=== PATIENT | female | born 1945 | race Caucasian/White ===

== ENCOUNTER 2017-02-21 08:21 | Inpatient (IN) | payer MEDICARE, OTHER ==
[~2017-02-21] VITALS: Ht 157.5 cm; Wt 41.2 kg
[2017-02-21] VITALS (7 sets, daily range): BP systolic 109–146; BP diastolic 65–78; PULSE 98–122; RESP 12–24; TEMP 98.1–100.4; O2SAT 90–95
[~2017-02-21 08:21] MED LIST: AGGR20025 PO; ALPR0.25 PO; CALC500T21 PO; CENTCHW3 PO; CYMB30CA PO; ERYT250T13 PO; GENT0.2D2 EACH EYE; LORTA5 PO; LOVA20TA PO; MONT10TA2 PO; NACL5%O; NEXI40CA PO; ONDA4 PO; PROM25TA5 PO; XYZA5TAB2 PO
[2017-02-21] MEDS ORDERED: SODIUM CHLOR 0.9% 1000 ML INJ 1,000 ML IV ONE (08:45)
[2017-02-21] MEDS ORDERED: ONDANSETRON HCL 4 MG/2 ML VIAL IV PUSH ONE (08:45)
[2017-02-21] MEDS: SODIUM CHLORIDE 0.9% FLUSH 10 ML FLUSH IV FLUSH PRN (08:50)
[2017-02-21 09:24] LABS: AUTOMATED NEUTROPHIL # 18.4 TH/MM3 (1.8-7.7); BASOPHIL # 0.1 TH/MM3 (0-0.2); BASOPHIL % 0.4 % (0.0-2.0); HEMATOCRIT 46.6 % (35.0-46.0); HEMO FLAGS DIFF FINAL; LYMPH % 5.4 % (9.0-44.0); LYMPHOCYTE # 1.1 TH/MM3 (1.0-4.8); MEAN CELL VOLUME 107.7 FL (80.0-100.0); MEAN CORPUSCULAR HEMOGLOBIN 37.1 PG (27.0-34.0); MEAN CORPUSCULAR HGB CONC 34.4 % (32.0-36.0); MONO % 5.8 % (0.0-8.0); NEUT % 88.4 % (16.0-70.0); PLATELET COUNT 481 TH/MM3 (150-450); RED BLOOD COUNT 4.33 MIL/MM3 (4.00-5.30); WHITE BLOOD COUNT 20.8 TH/MM3 (4.0-11.0)
--- NOTE | 2017-02-21 09:40 | RADRPT ---
EXAM DATE/TIME: 02/21/2017 09:20 [facility] COMPARISON: ABDOMEN FLAT & UPRIGHT, September 03, 2015, 8:19. INDICATIONS : Abdominal pain, vomiting MEDICAL HISTORY : Diverticulitis. SURGICAL HISTORY : Appendectomy. Cholecystectomy. Colostomy. Hysterectomy. Colostomy reversal. ENCOUNTER: Initial ACUITY: 1 day PAIN SCORE: 6/10 LOCATION: Bilateral abdomen FINDINGS: Supine and upright views of the abdomen demonstrate air within small and large bowel in a nonobstruct dominga pattern. No organomegaly is present. There is a 2.2 cm ovoid density overlying the right pelvis o f uncertain etiology and new from the prior study. No abnormal mass effect is appreciated. Upright im age demonstrates no free intraperitoneal air or significant air-fluid level. Visualized bones demonst rate no acute finding and lower lung zones are clear. There is mild levoscoliosis with multilevel deg enerative disc disease in the lumbar spine. CONCLUSION: 1. No acute abdominal abnormality is identified. There are no findings to indicate bowel obstruction. 2. There is a nonspecific 2.2 cm calcification in the right pelvis. Bandar Simons MD on February 21, 2017 at 9:37 Board Certified Radiologist. This report was verified electronically.
[2017-02-21 09:47] LABS: ALT (GPT) 23 U/L (10-53)
[2017-02-21 09:49] LABS: ALKALINE PHOSPHATASE 95 U/L (45-117); TOTAL BILIRUBIN ADULT 0.5 MG/DL (0.2-1.0)
[2017-02-21 09:50] LABS: ANION GAP 12 MEQ/L (5-15); AST (GOT) 20 U/L (15-37); BICARBONATE 28.7 MEQ/L (21.0-32.0); BLOOD UREA NITROGEN 40 MG/DL (7-18); CHLORIDE 94 MEQ/L (98-107); GLOMERULAR FILTRATION RATE 23 ML/MIN (>89); POTASSIUM 4.2 MEQ/L (3.5-5.1); SODIUM (NA) 135 MEQ/L (136-145)
--- NOTE | 2017-02-21 10:19 | PD ---
HPI Chief Complaint: GI Complaint Time Seen by Provider: 08:38 Travel History International Travel<30 days: No Contact w/Intl Traveler<30days: No Traveled to known affect area: No History of Present Illness HPI 71-year-old female patient with history of previous bowel obstruction, perforation, multiple surgeries, hernia surgeries done by Dr. Willoughby, presents to the ER today because she states that she started having nausea, vomiting multiple times since last night, abdominal cramping, and had talked to Dr. Willoughby and he told her to come to the ER. She did have a bowel movement early this morning. She denies any diarrhea, fevers, or other symptoms. Pain is currently a 3 out of 10. Modifying Factors: None Associated Signs & Symptoms: Abdominal cramping pains, nausea, vomiting Risk Factors: History of bowel obstruction PFSH Past Medical History Hx Anticoagulant Therapy: Yes Arthritis: No Anxiety: Yes Depression: No Cancer: Yes (lumpectomy 2009) Cardiovascular Problems: No High Cholesterol: Yes Cerebrovascular Accident: Yes (TIA) Diabetes: No Diminished Hearing: No Endocrine: No Gastrointestinal Disorders: Yes (gerd) GERD: Yes Glaucoma: No Genitourinary: No Headaches: Yes (SINUS) Hepatitis: No Hiatal Hernia: Yes Hypertension: No Immune Disorder: No Musculoskeletal: No Neurologic: Yes (tia in the past) Psychiatric: Yes (anxiety) Reproductive: No Respiratory: Yes (allergies) Radiation Therapy: Yes Thyroid Disease: No ?: Not : 1 Para: 1 Past Surgical History Abdominal Surgery: Yes (abd resection 03/31/15 with colostomy;reversal ) AICD: No Appendectomy: Yes Body Medical Devices: IMPLANTED TEETH Cardiac Surgery: Yes Cholecystectomy: Yes Ear Surgery: No Endocrine Surgery: No Eye Surgery: Yes (cataract surgery) Genitourinary Surgery: Yes (hysterectomy) Gynecologic Surgery: No Hysterectomy: Yes Joint Replacement: No Oral Surgery: No Pacemaker: No Thoracic Surgery: No Other Surgery: Yes (LEFT BREAST LUMPECTOMY) Social History Alcohol Use: No Tobacco Use: No Substance Use: No Allergies-Medications (Allergen,Severity, Reaction): Coded Allergies: *MDRO Multi-Drug Resistant Organism (Verified Adverse Reaction, Unknown, ) ESBL E. coli (fluid ) - 02/2015 / (abscess) - 05/2015 Reported Meds & Prescriptions Reported Meds & Active Scripts Active Montrose 5-325 mg (Hydrocodone-Acetaminophen 5-325 mg) 1 Tab 1 Tab PO Q4H PRN Reported Xyzal (Levocetirizine) 5 Mg Tab 5 Mg PO DAILY Erythromycin 250 Mg Tab 250 Mg PO QID Alprazolam 0.25 Mg Tab 0.25 Mg PO TID Zofran 4 Mg Tab (Ondansetron Hcl) 4 Mg Tab 4 Mg PO PRN Nexium (Esomeprazole Magnesium) Esomeprazole Magnesium 40 mg Cap 40 Mg PO HS Centrum Silver (Multiple Vitamins W/ Minerals) Silver Chw 1 Caplet PO DAILY Genteal Mild (Hydroxypropyl Methylcellulose) 0.2 % Tanvir 1 Drop EACH EYE BID Huey 128 5% Oint (Sodium Chloride) 3.5 Applic/3.5 Gm Oint 3.5 Applic .XX BID Lovastatin 20 Mg Tab 20 Mg PO EVERY OTHER DAY Phenergan 25 mg (Promethazine HCl) 25 Mg Tab 25 Mg PO Q6H PRN Singulair (Montelukast Sodium) 10 Mg Tab 10 Mg PO HS Cymbalta (Duloxetine HCl) 30 Mg Cap 60 Mg PO DAILY Calcium 500+D (Calcium/Vitamin D) 500 + Tab 1,200 + PO DAILY Aggrenox (Dipyridamole/Aspirin) 25 Mg/200 Mg Cap 1 Cap PO BID Review of Systems Except as stated in HPI: all other systems reviewed are Neg Physical Exam Narrative GENERAL: Well-developed elderly white female patient currently in moderate distress. Awake and oriented 3. SKIN: Focused skin assessment warm/dry. HEAD: Atraumatic. Normocephalic. EYES: Pupils equal and round. No scleral icterus. No injection or drainage. ENT: No nasal bleeding or discharge. Mucous membranes pink and moist. NECK: Trachea midline. No JVD. CARDIOVASCULAR: Regular rate and rhythm. No murmur appreciated. RESPIRATORY: No accessory muscle use. Clear to auscultation. Breath sounds equal bilaterally. GASTROINTESTINAL: Abdomen scaphoid, mild diffuse tenderness throughout without guarding or rebound, nondistended. Hepatic and splenic margins not palpable. MUSCULOSKELETAL: No obvious deformities. No clubbing. No cyanosis. No edema. NEUROLOGICAL: Awake and alert. No obvious cranial nerve deficits. Motor grossly within normal limits. Normal speech. PSYCHIATRIC: Appropriate mood and affect; insight and judgment normal. Data Data Last Documented VS Vital Signs Date Time Temp Pulse Resp B/P (MAP) Pulse Ox O2 Delivery O2 Flow Rate FiO2 02/21/17 11:20 98 18 146/65 (92) 95 Room Air 02/21/17 08:24 98.1 Orders Orders Complete Blood Count With Diff (02/21/17 08:35) Comprehensive Metabolic Panel (02/21/17 08:35) Lipase (02/21/17 08:35) Urinalysis - C+S If Indicated (02/21/17 08:35) Abdomen, Flat & Upright (02/21/17 ) Iv Access Insert/Monitor (02/21/17 08:35) Ecg Monitoring (02/21/17 08:35) Oximetry (02/21/17 08:35) Sodium Chloride 0.9% Flush (Ns Flush) (02/21/17 08:45) Sodium Chlor 0.9% 1000 Ml Inj (Ns 1000 M (02/21/17 08:45) Ondansetron Inj (Zofran Inj) (02/21/17 08:45) Ct Abd/Pel W/O Iv Contrast (02/21/17 09:58) Promethazine Inj (Phenergan Inj) (02/21/17 11:00) Ng Gastric Tube Insert/Monitor (02/21/17 10:58) Admit Order (Ed Use Only) (02/21/17 11:23) Labs Laboratory Tests Test 02/21/17 08:50 White Blood Count 20.8 TH/MM3 Red Blood Count 4.33 MIL/MM3 Hemoglobin 16.0 GM/DL Hematocrit 46.6 % Mean Corpuscular Volume 107.7 FL Mean Corpuscular Hemoglobin 37.1 PG Mean Corpuscular Hemoglobin Concent 34.4 % Red Cell Distribution Width 14.0 % Platelet Count 481 TH/MM3 Mean Platelet Volume 8.0 FL Neutrophils (%) (Auto) 88.4 % Lymphocytes (%) (Auto) 5.4 % Monocytes (%) (Auto) 5.8 % Eosinophils (%) (Auto) 0.0 % Basophils (%) (Auto) 0.4 % Neutrophils # (Auto) 18.4 TH/MM3 Lymphocytes # (Auto) 1.1 TH/MM3 Monocytes # (Auto) 1.2 TH/MM3 Eosinophils # (Auto) 0.0 TH/MM3 Basophils # (Auto) 0.1 TH/MM3 CBC Comment DIFF FINAL Differential Comment Blood Urea Nitrogen 40 MG/DL Creatinine 2.11 MG/DL Random Glucose 160 MG/DL Total Protein 8.9 GM/DL Albumin 3.9 GM/DL Calcium Level 10.5 MG/DL Alkaline Phosphatase 95 U/L Aspartate Amino Transf (AST/SGOT) 20 U/L Alanine Aminotransferase (ALT/SGPT) 23 U/L Total Bilirubin 0.5 MG/DL Sodium Level 135 MEQ/L Potassium Level 4.2 MEQ/L Chloride Level 94 MEQ/L Carbon Dioxide Level 28.7 MEQ/L Anion Gap 12 MEQ/L Estimat Glomerular Filtration Rate 23 ML/MIN Lipase 91 U/L MDM Medical Decision Making Medical Screen Exam Complete: Yes Emergency Medical Condition: Yes Medical Record Reviewed: Yes Interpretation(s) Laboratory Tests Test 02/21/17 08:50 White Blood Count 20.8 TH/MM3 (4.0-11.0) Hemoglobin 16.0 GM/DL (11.6-15.3) Hematocrit 46.6 % (35.0-46.0) Mean Corpuscular Volume 107.7 FL (80.0-100.0) Mean Corpuscular Hemoglobin 37.1 PG (27.0-34.0) Platelet Count 481 TH/MM3 (150-450) Neutrophils (%) (Auto) 88.4 % (16.0-70.0) Lymphocytes (%) (Auto) 5.4 % (9.0-44.0) Neutrophils # (Auto) 18.4 TH/MM3 (1.8-7.7) Monocytes # (Auto) 1.2 TH/MM3 (0-0.9) Blood Urea Nitrogen 40 MG/DL (7-18) Creatinine 2.11 MG/DL (0.50-1.00) Random Glucose 160 MG/DL (74-106) Total Protein 8.9 GM/DL (6.4-8.2) Calcium Level 10.5 MG/DL (8.5-10.1) Sodium Level 135 MEQ/L (136-145) Chloride Level 94 MEQ/L (98-107) Estimat Glomerular Filtration Rate 23 ML/MIN (>89) Last 24 hours Impressions Abdomen X-Ray 02/21/17 0000 Signed Impressions: Service Date/Time: Tuesday, February 21, 2017 09:20 - CONCLUSION: 1. No acute abdominal abnormality is identified. There are no findings to indicate bowel obstruction. 2. There is a nonspecific 2.2 cm calcification in the right pelvis. Bandar Simons MD Differential Diagnosis Nausea, vomiting, abdominal cramping: Gastroenteritis versus bowel obstruction versus ileus versus dehydration versus metabolic issues versus acute intra- abdominal processes Narrative Course Initial x-ray did not show obvious small bowel obstruction but lab work shows significant dehydration and she is continuing to vomit in the ER despite Zofran. She was given Phenergan. NG tube was ordered for her but she refused because she wants to see if Phenergan was can work first. At this point, case was discussed with Dr. Willoughby who would like the patient to be admitted to his service. Diagnosis Primary Impression: SBO (small bowel obstruction) Additional Impression: Acute renal failure Admitting Information Admitting Physician Requests: Max Hammond MD Feb 21, 2017 10:19
[2017-02-21] MEDS ORDERED: PROMETHAZINE INJ 25 MG/ML VIAL IM ONE (11:00)
--- NOTE | 2017-02-21 11:19 | RADRPT ---
EXAM DATE/TIME: 02/21/2017 10:26 [facility] COMPARISON: CT ABDOMEN & PELVIS W/O CONTRAST, September 02, 2015, 11:18. INDICATIONS : Vomiting for two days. ORAL CONTRAST: No oral contrast ingested. RADIATION DOSE: 4.49 CTDIvol (mGy) MEDICAL HISTORY : Hernia, hiatal. Valeriano obstruction. SURGICAL HISTORY : Hysterectomy. colostomy and reversal, bowel resection. ENCOUNTER: Initial ACUITY: 1 day PAIN SCALE: 5/10 LOCATION: Bilateral abdomen TECHNIQUE: Volumetric scanning of the abdomen and pelvis was performed. Using automated exposure control and ad justment of the mA and/or kV according to patient size, radiation dose was kept as low as reasonably achievable to obtain optimal diagnostic quality images. DICOM format image data is available electro nically for review and comparison. FINDINGS: LOWER LUNGS: The visualized lower lungs are clear. LIVER: Homogeneous density without lesion. There is no dilation of the biliary tree. No gallbladder is vis ualized. SPLEEN: The spleen is small. PANCREAS: No acute abnormality. KIDNEYS: Normal in size and shape. There is no mass, stone, or hydronephrosis. ADRENAL GLANDS: There is a 3.4 cm right adrenal gland mass and 2.3 cm left adrenal gland mass. Both have density maritza urements characteristic of adenomas. VASCULAR: There is no aortic aneurysm. There is severe atherosclerotic disease. BOWEL/MESENTERY: Stomach is mildly distended. There is a dilated duodenum and jejunum measuring up to 4 cm. These dila joshua segments of bowel contain fluid. The ileum is decompressed. Exact location of the transition poin t is not identified but likely somewhere in the central to right pelvis. Colon is decompressed. There has been prior distal sigmoid colon surgery with bowel staple line. No free intraperitoneal air or f ree fluid is present. There is a nonspecific 2 cm calcification in the right pelvis. ABDOMINAL WALL: No acute abnormality. RETROPERITONEUM: There is no lymphadenopathy. BLADDER: No wall thickening or mass. REPRODUCTIVE: Uterus is not visualized. INGUINAL: There is no lymphadenopathy or hernia. MUSCULOSKELETAL: There is degenerative changes of the spine. CONCLUSION: 1. Abnormally dilated and fluid-filled duodenum and jejunum with decompressed ileum suspicious for so me degree of small bowel obstruction. The pattern and general area of transition point is similar to the prior examination. Given the prior surgery, adhesions should be a top consideration. 2. Nonspecific 2 cm calcification right pelvis. It is not clear if this associated with the bowel or right adnexa. 3. Stable bilateral adrenal adenomas. 4. Severe atherosclerotic disease. Bandar Simons MD on February 21, 2017 at 11:10 Board Certified Radiologist. This report was verified electronically.
[2017-02-21 12:16] LABS: BACTERIA, URINE RARE /hpf; BLOOD, URINE NEG (NEG); COMMENT (UR) CULT NOT INDICATED; CULTURE IF INDICATED CULT NOT INDICATED; GLUCOSE,URINE NEG (NEG); HYALINE CAST, URINE 33 /lpf (RARE); KETONE, URINE 10 mg/dL (NEG); MUCUS URINE FEW /lpf (OCC); NITRITE,URINE NEG (NEG); PH, URINE 5.5 (5.0-8.5); SQUAMOUS EPITHELIAL CELL URINE 3 /hpf (0-5); URINE COLOR YELLOW (YELLW/STRAW)
[2017-02-21] MEDS ORDERED: Post-op Orders (for Pharmacy) MISC XX ONE (12:30)
[2017-02-21] MEDS ORDERED: SODIUM CHLORIDE 0.9% FLUSH 5 ML FLUSH IVF PRN (12:30)
[2017-02-21] MEDS ORDERED: NALOXONE HCL 0.4 MG/ML AMP IV PRN (12:30)
[2017-02-21] MEDS ORDERED: diphenhydrAMINE HCL 50 MG/ML VIAL IVP PRN (12:30)
[2017-02-21] MEDS: D5-NS + KCL 20 MEQ INJ 1,000 ML IV SCH ×2 (14:52→22:00)
--- NOTE | 2017-02-21 17:12 | MH ---
cc: JAGUAR WILLOUGHBY M.D. DATE OF ADMISSION 02/21/2017 REASON FOR ADMISSION Small bowel obstruction. HISTORY OF PRESENT ILLNESS The patient is a 71-year-old female who had previous history of bowel obstruction and lysis of adhesions and then component separation with hernia repair last year in February. She presented to the ER today because she had a 1-day history of progressive abdominal distension, nausea and vomiting. She did have a bowel movement early this morning. The patient has been on anticoagulants in the past and has history of anxiety. She has history of breast cancer with lumpectomy in 2009, a TIA in the past. PAST MEDICAL HISTORY Other medical problems include: 1. GE reflux disease. 2. Sinus headaches. 3. Hiatal hernia. 4. History of radiation therapy to the breast. 5. Abdominal surgery includes sigmoid resection in March of 2015 with colostomy reversal 3 months later followed by hernia repair. PAST SURGICAL HISTORY Other surgeries include: 1. Hysterectomy. 2. Eye surgery. 3. Left breast lumpectomy with radiation. SOCIAL HISTORY She does not drink, smoke or use other substances. 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 Levocetirizine 5 mg q. Day. 2. Erythromycin 250 mg four times daily. 3. Alprazolam 0.25 mg p.o. t.i.d. 4. Zofran 4 mg p.o. as needed. 5. Nexium 40 mg p.o. q.h.s. 6. Lovastatin 20 mg every other day. 7. Phenergan 25 mg p.o. q.6 h p.r.n. 8. Singulair 10 mg p.o. q.h.s. 9. Cymbalta 60 mg q. day. 10. Aggrenox 25/200 one p.o. b.i.d. PHYSICAL EXAMINATION GENERAL: Reveals a thin female who is not uncomfortable at this time. She has a nasogastric tube in place. VITAL SIGNS: BP 146/65, pulse 98, respirations 18, temperature 99.0, 95% saturation on room air. HEENT: Sclerae anicteric. CHEST: Clear to auscultation. CARDIOVASCULAR: Cardiac exam reveals regular rate and rhythm. ABDOMEN: Soft and nontender at this time and nondistended. There is a well-healed midline scar. No hernias noted. EXTREMITIES: Pulses are intact. LABORATORY DATA Laboratory values demonstrate WBC of 20.8 with platelet count 481,000. BUN and creatinine are elevated at 42.1. Potassium is 4.2. IMAGING Imaging demonstrates KUB which is essentially unremarkable. CT scan demonstrates dilated loops of small bowel with a dilated segment of the duodenum and jejunum with the ileum decompressed. There is no free intraperitoneal air or fluid. ASSESSMENT Partial small-bowel obstruction likely secondary to adhesions. PLAN NG tube, IV fluids, n.p.o. status. The patient is agreeable to this and would like to avoid surgery if possible. I am in agreement. Jaguar Willoughby MD MAF/KK /4:42 PM /5:01 PM
[2017-02-21] MEDS: MORPHINE SULFATE 4 MG/ML INJ IV PUSH PRN ×3 (18:20→23:58)
[2017-02-21] MEDS: ONDANSETRON HCL 4 MG/2 ML VIAL IV PRN ×2 (20:11→23:58)
[2017-02-21] MEDS: SODIUM CHLORIDE 0.9% FLUSH 5 ML FLUSH IVF SCH (20:36)
[2017-02-22] VITALS: BP 134/68; PULSE 88; RESP 17; TEMP 98; O2SAT 95
[2017-02-22] MEDS: ONDANSETRON HCL 4 MG/2 ML VIAL IV PRN (05:47)
[2017-02-22] MEDS: MORPHINE SULFATE 4 MG/ML INJ IV PUSH PRN ×4 (05:47→20:19)
[2017-02-22] MEDS: D5-NS + KCL 20 MEQ INJ 1,000 ML IV SCH ×2 (05:47→16:04)
[2017-02-22 06:49] LABS: AUTOMATED NEUTROPHIL # 6.7 TH/MM3 (1.8-7.7); BASOPHIL % 0.1 % (0.0-2.0); EOSINOPHIL % 0.3 % (0.0-4.0); HEMATOCRIT 34.8 % (35.0-46.0); HEMO FLAGS DIFF FINAL; LYMPH % 9.9 % (9.0-44.0); LYMPHOCYTE # 0.9 TH/MM3 (1.0-4.8); MEAN CELL VOLUME 109.7 FL (80.0-100.0); MEAN CORPUSCULAR HEMOGLOBIN 37.1 PG (27.0-34.0); MEAN CORPUSCULAR HGB CONC 33.8 % (32.0-36.0); MONO % 11.8 % (0.0-8.0); NEUT % 77.9 % (16.0-70.0); PLATELET COUNT 317 TH/MM3 (150-450); RED BLOOD COUNT 3.18 MIL/MM3 (4.00-5.30); WHITE BLOOD COUNT 8.6 TH/MM3 (4.0-11.0)
[2017-02-22 07:18] LABS: BICARBONATE 27.4 MEQ/L (21.0-32.0); POTASSIUM 4.1 MEQ/L (3.5-5.1)
[2017-02-22 08:00] VITALS: BP 133/70; PULSE 78; RESP 18; TEMP 98.5; O2SAT 94
[2017-02-22] MEDS: SODIUM CHLORIDE 0.9% FLUSH 5 ML FLUSH IVF SCH ×2 (09:00→21:00)
--- NOTE | 2017-02-22 11:16 | HHI.PR ---
Subjective Subjective Notes Resting in bed Feels better today than yesterday Still with mild nausea despite having the NGT Objective Vitals/I&O Vital Signs Date Time Temp Pulse Resp B/P (MAP) Pulse Ox O2 Delivery O2 Flow Rate FiO2 02/22/17 08:00 98.5 78 18 133/70 (91) 94 02/21/17 11:20 Room Air Labs Laboratory Tests Test 02/21/17 11:15 02/22/17 06:04 Urine Color YELLOW Urine Turbidity HAZY Urine pH 5.5 Urine Specific [place] 1.027 Urine Protein 30 Urine Glucose (UA) NEG Urine Ketones 10 Urine Occult Blood NEG Urine Nitrite NEG Urine Bilirubin NEG Urine Urobilinogen 2.0 Urine Leukocyte Esterase NEG Urine RBC 10 Urine WBC 1 Urine Squamous Epithelial Cells 3 Urine Bacteria RARE Urine Hyaline Casts 33 Urine Mucus FEW Microscopic Urinalysis Comment CULT NOT INDICATED White Blood Count 8.6 Red Blood Count 3.18 Hemoglobin 11.8 Hematocrit 34.8 Mean Corpuscular Volume 109.7 Mean Corpuscular Hemoglobin 37.1 Mean Corpuscular Hemoglobin Concent 33.8 Red Cell Distribution Width 14.0 Platelet Count 317 Mean Platelet Volume 7.9 Neutrophils (%) (Auto) 77.9 Lymphocytes (%) (Auto) 9.9 Monocytes (%) (Auto) 11.8 Eosinophils (%) (Auto) 0.3 Basophils (%) (Auto) 0.1 Neutrophils # (Auto) 6.7 Lymphocytes # (Auto) 0.9 Monocytes # (Auto) 1.0 Eosinophils # (Auto) 0.0 Basophils # (Auto) 0.0 CBC Comment DIFF FINAL Differential Comment Blood Urea Nitrogen 41 Creatinine 1.11 Random Glucose 121 Calcium Level 8.1 Sodium Level 145 Potassium Level 4.1 Chloride Level 113 Carbon Dioxide Level 27.4 Anion Gap 5 Estimat Glomerular Filtration Rate 48 Cardiovascular: Regular Lungs: Clear Abdomen: Other (minimally tender; non distended ) Extremities: No edema Narrative Exam NGT in place to LIWS A/P Assessment and Plan 71 year old female with PSBO secondary to pelvic adhesions -NGT to SORAIDA -WHIT this AM -Labs stable -OOB and mobilize -Continue IVF -Okay to clamp NGT to mobilize and get to restroom Attending Note - Dr. Case RUBIO's normalized Abdomen benign Likely nonoperative management The exam, history, and the medical decision-making described in the above note were completed with the assistance of the mid-level provider. I reviewed and agree with the findings presented. I attest that I had a [id number] encounter with the patient on the same day, and personally performed and documented my assessment and findings in the medical record. Mariel Leggett Feb 22, 2017 11:16 Jim Willoughby MD Feb 23, 2017 19:40
--- NOTE | 2017-02-22 11:40 | RADRPT ---
EXAM DATE/TIME: 02/22/2017 11:21 [facility] COMPARISON: CT ABDOMEN & PELVIS W/O CONTRAST, February 21, 2017, 10:26. INDICATIONS : Obstruction. MEDICAL HISTORY : hiatal hernia, bowel obstruction. SURGICAL HISTORY : Hysterectomy. colostomy and reversal. Bowel resection ENCOUNTER: Initial ACUITY: 1 day PAIN SCORE: 0/10 LOCATION: Bilateral abdomen FINDINGS: An enteric tube is identified in the tip of the tube overlies the expected location of the distal eso phagus, side port distal esophagus. There is mildly distended small bowel loop overlying the left upp er quadrant, otherwise the bowel gas pattern is unremarkable. Atherosclerotic calcification of the ao rta and iliac vessels identified. CONCLUSION: Nonspecific bowel gas pattern. A mildly distended gas-filled loop of bowel over the left upper quadra nt is identified. Kwadwo Oh MD on February 22, 2017 at 11:37 Board Certified Radiologist. This report was verified electronically.
[2017-02-22 12:00] VITALS: BP 171/76; PULSE 66; RESP 20; TEMP 95.7; O2SAT 95
[2017-02-22 16:00] VITALS: BP 155/71; PULSE 70; RESP 18; TEMP 97.8; O2SAT 93
[2017-02-22 20:00] VITALS: BP 148/68; PULSE 65; RESP 16; TEMP 96.4; O2SAT 93
[2017-02-22] MEDS: SODIUM CHLORIDE 0.9% FLUSH 10 ML FLUSH IV FLUSH PRN (20:19)
[2017-02-22] MEDS: LORazepam 2 MG/ML VIAL IM PRN (21:40)
[2017-02-23 00:37] VITALS: BP 158/72; PULSE 75; RESP 16; TEMP 96.5; O2SAT 94
[2017-02-23] MEDS: MORPHINE SULFATE 4 MG/ML INJ IV PUSH PRN (00:41)
[2017-02-23] MEDS: D5-NS + KCL 20 MEQ INJ 1,000 ML IV SCH ×4 (00:43→18:12)
[2017-02-23] MEDS: LORazepam 2 MG/ML VIAL IM PRN ×3 (05:41→18:07)
[2017-02-23 08:00] VITALS: BP 166/82; PULSE 75; RESP 18; TEMP 98.5; O2SAT 93
[2017-02-23] MEDS: SODIUM CHLORIDE 0.9% FLUSH 5 ML FLUSH IVF SCH ×2 (09:00→21:00)
[2017-02-23 12:00] VITALS: BP 149/71; PULSE 63; RESP 18; TEMP 96.7; O2SAT 95
--- NOTE | 2017-02-23 13:17 | HHI.PR ---
Subjective Subjective Notes Resting in bed Feeling much better Ready to try clear liquids Objective Vitals/I&O Vital Signs Date Time Temp Pulse Resp B/P (MAP) Pulse Ox O2 Delivery O2 Flow Rate FiO2 02/23/17 08:00 98.5 75 18 166/82 (110) 93 02/21/17 11:20 Room Air Cardiovascular: Regular Lungs: Clear Abdomen: Non-distended, Non-tender Extremities: No edema Narrative Exam NGT clamped A/P Assessment and Plan 71 year old female with PSBO secondary to pelvic adhesions -NGT clamped; minimal residuals overnight -Keep NGT clamped -Start clear liquids -If tolerates clear liquids will DC NGT -OOB and mobilize -Continue IVF -Will continue non operative treatment Attending Note - Dr. Willoughby Abdomen soft Tolerating clears with NG clamped NG removed Heplock IV tonight Advance diet in AM D/C home tomorrow if tolerating regular diet for breakfast, lunch and dinner. The exam, history, and the medical decision-making described in the above note were completed with the assistance of the mid-level provider. I reviewed and agree with the findings presented. I attest that I had a [id number] encounter with the patient on the same day, and personally performed and documented my assessment and findings in the medical record. Mariel Leggett Feb 23, 2017 13:17 Jim Willoughby MD Feb 23, 2017 19:42
[2017-02-23 16:00] VITALS: BP 156/75; PULSE 73; RESP 17; TEMP 98.8; O2SAT 96
[2017-02-23 20:43] VITALS: BP 153/72; PULSE 66; RESP 16; TEMP 97.5; O2SAT 96
[2017-02-24] VITALS: BP 154/73; PULSE 76; RESP 20; TEMP 99.1; O2SAT 96
[2017-02-24 08:00] VITALS: BP 156/75; PULSE 76; RESP 17; TEMP 97.7; O2SAT 96
[2017-02-24] MEDS: SODIUM CHLORIDE 0.9% FLUSH 5 ML FLUSH IVF SCH (09:00)
[2017-02-24 12:00] VITALS: BP 132/79; PULSE 74; RESP 16; TEMP 97.6; O2SAT 97
[2017-02-24 16:00] VITALS: BP 130/78; PULSE 88; RESP 18; TEMP 96.9; O2SAT 97
--- NOTE | 2017-02-24 16:02 | HHI.DS ---
Discharge Summary Admission Date Feb 21, 2017 at 11:25 Discharge Date: Feb 24, 2017 Admitting Diagnosis small bowel obstruction Brief History 71 year old female with PSBO. CBC/BMP: 02/22/17 0604 02/22/17 0604 Significant Findings Laboratory Tests Test 02/22/17 06:04 Red Blood Count 3.18 MIL/MM3 (4.00-5.30) Hematocrit 34.8 % (35.0-46.0) Mean Corpuscular Volume 109.7 FL (80.0-100.0) Mean Corpuscular Hemoglobin 37.1 PG (27.0-34.0) Neutrophils (%) (Auto) 77.9 % (16.0-70.0) Monocytes (%) (Auto) 11.8 % (0.0-8.0) Lymphocytes # (Auto) 0.9 TH/MM3 (1.0-4.8) Monocytes # (Auto) 1.0 TH/MM3 (0-0.9) Blood Urea Nitrogen 41 MG/DL (7-18) Creatinine 1.11 MG/DL (0.50-1.00) Random Glucose 121 MG/DL (74-106) Calcium Level 8.1 MG/DL (8.5-10.1) Chloride Level 113 MEQ/L (98-107) Estimat Glomerular Filtration Rate 48 ML/MIN (>89) PE at Discharge Alert and awake Resp: CTAB Cardio: RRR Abd: soft non tender Hospital Course This is a 71 year old patient well known to the General Surgery service. She has come in with a partial small bowel obstruction. She was treated non operatively with bowel rest. Her NGT was taken out. Her diet was advanced as tolerated. She will be DCed home this evening and will follow up in about a week and a half at her already established appointment in the office. Pt Condition on Discharge: Good Discharge Disposition: Discharge Home Discharge Instructions DIET: Follow Instructions for: As Tolerated, No Restrictions Activities you can perform: See Additionl Instruction Mariel Leggett Feb 24, 2017 16:02
== END 2017-02-24 18:07 | disposition home or self-care (01) | DRG 389 ==
LOC: NEPC 08:21 → NEDA 11:25 → N07A 14:01
PROVIDERS: ADMIT Surgery Trauma Surgery; ATTEND Surgery Trauma Surgery
DX: K56.5 Intestinal adhesions [bands] with obstruction (postinfection) (principal); N17.9 Acute kidney failure, unspecified; E86.0 Dehydration; F41.9 Anxiety disorder, unspecified; K21.9 Gastro-esophageal reflux disease without esophagitis; Z86.73 Personal history of transient ischemic attack (TIA), and cerebral infarction without residual deficits; Z92.3 Personal history of irradiation; Z85.3 Personal history of malignant neoplasm of breast
CPT/HCPCS: 74000; 74020; 74176; 80048; 80053; 81001; 83690; 85025; 96361; 96372; 96374; J2060; J2270; J2405; J2550; J3480; J7030